=== PATIENT | male | born 1960 | race Hispanic/Latino ===

== ENCOUNTER → 2020-11-02 | Day surgery (SDC) | payer MEDICARE ==
[2020-10-28 14:15] LABS: BASOPHILS # (AUTO) 0.1 (0.0-0.1); BASOPHILS % 0.8 % (0.0-1.0); EOSINOPHILS # (AUTO) 0.2 (0.0-0.4); EOSINOPHILS % 3.1 % (0.0-6.0); HEMATOCRIT 45.7 % (38.2-49.6); HEMOGLOBIN 15.2 g/dL (14.0-18.0); LYMPHOCYTES # (AUTO) 1.7 (1.0-3.2); LYMPHOCYTES % 23.1 % (18.0-39.1); MEAN CORPUSCULAR HEMOGLOBIN 28.7 pg (28-32); MEAN CORPUSCULAR HGB CONC 33.3 g/dL (31-35); MEAN CORPUSCULAR VOLUME 86.2 fL (81-99); MONOCYTES # (AUTO) 0.5 (0.2-0.8); MONOCYTES % 7.3 % (4.4-11.3); NEUTROPHILS # (AUTO) 4.9 (2.1-6.9); NEUTROPHILS % 65.4 % (38.7-80.0); PLATELET COUNT 205 x10e3/uL (140-360); RED CELL DISTRIBUTION WIDTH 14.6 % (11.7-14.4)
[2020-10-28 14:32] LABS: ALANINE AMINOTRANSFERASE 9 IU/L (0-55); ALBUMIN 3.8 g/dL (3.5-5.0); ALBUMIN/GLOBULIN RATIO 1.1 (0.8-2.0); ALKALINE PHOSPHATASE 87 IU/L (40-150); ANION GAP 16.4 mmol/L (8-16); BLOOD UREA NITROGEN 18 mg/dL (7-26); BUN/CREATININE RATIO 16 (6-25); CALCIUM 8.8 mg/dL (8.4-10.2); CARBON DIOXIDE 26 mmol/L (22-29); CHLORIDE 104 mmol/L (98-107); CREATININE, SERUM 1.14 mg/dL (0.72-1.25); EST GLOMERULAR FILTRATION RATE > 60 ML/MIN (60-); GLUCOSE 180 mg/dL (74-118); POTASSIUM 3.4 mmol/L (3.5-5.1); SODIUM 143 mmol/L (136-145)
[~2020-11-02] VITALS: Ht 180.3 cm; Wt 154.2 kg
[~2020-11-02] MED LIST: ACETAMINOPHEN-1 EAC4 PO; ALPRAZOLAM 0.5 MG TAB ONE; AMBIEN10 MG PO; AMMONIUM LACTA225 GM TOP; ASPIR 8181 MG PO; CHERATUSSIN AC118 ML PO; CLONIDINE HCL0.2 MG PO; COMBIVENT RESPIM4 GM IH; CYCLOBENZAPRINE10 MG PO; DIPHENHYDRAMINE HCL 25 MG CAP ONE; DOXAZOSIN MESYLA4 MG PO; FENTANYL CITRATE/PF 100MCG/2 ML INJ ONE; FLUTICA; FUROSEMIDE40 MG PO; GABAPENTIN300 MG PO; HEPARIN SOD/SOD CHLORIDE 2,000 ML ONE; IOPAMIDOL 370 MG/ML 200 ML INFUS..BTL INJ ONE; KETOCONAZOLE15 GM; LIDOCAINE HCL 2% LOCAL 20 ML VIAL ONE; LISINOPRIL40 MG PO; METFORMIN HCL500 MG PO; MIDAZOLAM HCL 2 MG/2 ML VIAL ONE; NEXIUM40 MG PO; NORVASC5 MG PO; POTASSIUM CHLO20 MEQ PO; SAVAYSA PO; SODIUM CHLORIDE 0.9% 1000ML 1,000 ML ONE; SPIRIVA18 MCG INH; SYMBICORT 16010.2 GM IH; TOPROL XL50 MG PO; TRAZODONE HCL50 MG PO; VERAPAMIL HCL 2.5 MG/ML 2 ML VIAL ONE; XARELTO20 MG PO; flonase
[2020-11-02 12:05] VITALS: BP 154/85
[2020-11-02 14:55] VITALS: BP 145/96
[2020-11-02 15:10] VITALS: BP 140/87
[2020-11-02 15:25] VITALS: BP 145/86
[2020-11-02 15:40] VITALS: BP 145/94
[2020-11-02 15:55] VITALS: BP 157/90
== END | disposition home or self-care (01) ==
LOC: CATH LAB 11:45
PROVIDERS: ATTEND Internal Medicine Interventional Cardiology
DX: I25.118 Atherosclerotic heart disease of native coronary artery with other forms of angina pectoris (principal); R94.39 Abnormal result of other cardiovascular function study; I11.0 Hypertensive heart disease with heart failure; I50.9 Heart failure, unspecified; E11.9 Type 2 diabetes mellitus without complications; I83.90 Asymptomatic varicose veins of unspecified lower extremity; Z79.84 Long term (current) use of oral hypoglycemic drugs; Z01.812 Encounter for preprocedural laboratory examination; Z20.822 Contact with and (suspected) exposure to COVID-19; Z79.02 Long term (current) use of antithrombotics/antiplatelets; Z79.82 Long term (current) use of aspirin; Z68.42 Body mass index [BMI] 45.0-49.9, adult; Z86.718 Personal history of other venous thrombosis and embolism; Z85.51 Personal history of malignant neoplasm of bladder; Z92.21 Personal history of antineoplastic chemotherapy; Z82.49 Family history of ischemic heart disease and other diseases of the circulatory system
CPT/HCPCS: 36415 ×2; 76937; 80053; 82948; 85025; 93454; C1887; J2001; J2250; J3010; J7030; Q9967; U0002; 99152; 99153

== ENCOUNTER 2021-05-10 14:50 | Outpatient (RCR) | payer MEDICARE ==
[2021-05-06 11:56] LABS: BASOPHILS # (AUTO) 0.1 (0.0-0.1); BASOPHILS % 0.8 % (0.0-1.0); EOSINOPHILS # (AUTO) 0.2 (0.0-0.4); EOSINOPHILS % 1.6 % (0.0-6.0); HEMATOCRIT 48.9 % (38.2-49.6); HEMOGLOBIN 15.5 g/dL (14.0-18.0); LYMPHOCYTES # (AUTO) 2.3 (1.0-3.2); LYMPHOCYTES % 24.9 % (18.0-39.1); MEAN CORPUSCULAR HEMOGLOBIN 27.9 pg (28-32); MEAN CORPUSCULAR HGB CONC 31.7 g/dL (31-35); MEAN CORPUSCULAR VOLUME 88.1 fL (81-99); MONOCYTES # (AUTO) 0.6 (0.2-0.8); MONOCYTES % 6.7 % (4.4-11.3); NEUTROPHILS % 65.5 % (38.7-80.0); PLATELET COUNT 262 x10e3/uL (140-360); RED BLOOD COUNT 5.55 x10e6/uL (4.3-5.7); RED CELL DISTRIBUTION WIDTH 13.7 % (11.7-14.4)
[2021-05-06 12:09] LABS: ALBUMIN/GLOBULIN RATIO 0.8 (0.8-2.0); ANION GAP 14.8 mmol/L (8-16); CALCIUM 8.9 mg/dL (8.4-10.2); CREATININE, SERUM 1.23 mg/dL (0.72-1.25); POTASSIUM 3.8 mmol/L (3.5-5.1)
[~2021-05-10 14:50] MED LIST changes: -ALPRAZOLAM 0.5 MG TAB ONE; -DIPHENHYDRAMINE HCL 25 MG CAP ONE; -FENTANYL CITRATE/PF 100MCG/2 ML INJ ONE; -HEPARIN SOD/SOD CHLORIDE 2,000 ML ONE; -IOPAMIDOL 370 MG/ML 200 ML INFUS..BTL INJ ONE; -LIDOCAINE HCL 2% LOCAL 20 ML VIAL ONE; -MIDAZOLAM HCL 2 MG/2 ML VIAL ONE; -SODIUM CHLORIDE 0.9% 1000ML 1,000 ML ONE; -VERAPAMIL HCL 2.5 MG/ML 2 ML VIAL ONE
== END 2021-05-12 ==
LOC: WCC 14:50
PROVIDERS: ATTEND Internal Medicine Infectious Disease
DX: I87.332 Chronic venous hypertension (idiopathic) with ulcer and inflammation of left lower extremity (principal); E11.8 Type 2 diabetes mellitus with unspecified complications; L97.821 Non-pressure chronic ulcer of other part of left lower leg limited to breakdown of skin; L03.818 Cellulitis of other sites; I82.402 Acute embolism and thrombosis of unspecified deep veins of left lower extremity; I87.2 Venous insufficiency (chronic) (peripheral); R60.0 Localized edema; I10 Essential (primary) hypertension; I25.10 Atherosclerotic heart disease of native coronary artery without angina pectoris; J44.9 Chronic obstructive pulmonary disease, unspecified; Z85.51 Personal history of malignant neoplasm of bladder; Z85.9 Personal history of malignant neoplasm, unspecified; Z72.0 Tobacco use
CPT/HCPCS: 36415; 80053; 82948; 83036; 84134; 85025; 87071; 87075; 87186; 87205

== ENCOUNTER 2021-06-09 13:47 | Outpatient (RCR) | payer MEDICARE, OTHER ==
[~2021-06-09 13:47] MED LIST changes: +LIDOCAINE VISC 2% SOLN 15 ML UDC ONE; +LIDOCAINE/PRILOCAINE 2.5-2.5% KIT ONE; +MINERAL OIL/PETROLAT/GLYCERI 6OZ BTL ONE
== END 2021-06-12 ==
LOC: WCC 13:47
PROVIDERS: ATTEND Internal Medicine Infectious Disease
DX: I87.332 Chronic venous hypertension (idiopathic) with ulcer and inflammation of left lower extremity (principal); E11.8 Type 2 diabetes mellitus with unspecified complications; L97.821 Non-pressure chronic ulcer of other part of left lower leg limited to breakdown of skin; L03.818 Cellulitis of other sites; I82.402 Acute embolism and thrombosis of unspecified deep veins of left lower extremity; I87.2 Venous insufficiency (chronic) (peripheral); R60.0 Localized edema; I10 Essential (primary) hypertension; I25.10 Atherosclerotic heart disease of native coronary artery without angina pectoris; B96.5 Pseudomonas (aeruginosa) (mallei) (pseudomallei) as the cause of diseases classified elsewhere; B96.89 Other specified bacterial agents as the cause of diseases classified elsewhere; J44.9 Chronic obstructive pulmonary disease, unspecified; Z72.0 Tobacco use; Z85.51 Personal history of malignant neoplasm of bladder; Z85.9 Personal history of malignant neoplasm, unspecified
CPT/HCPCS: 36415; 82948

== ENCOUNTER 2021-07-04 12:40 | Inpatient (IN) | payer MEDICARE, OTHER ==
[~2021-07-04] VITALS: Ht 180.3 cm; Wt 156.5 kg
[~2021-07-04 12:40] MED LIST changes: -LIDOCAINE VISC 2% SOLN 15 ML UDC ONE; -LIDOCAINE/PRILOCAINE 2.5-2.5% KIT ONE; -MINERAL OIL/PETROLAT/GLYCERI 6OZ BTL ONE
[2021-07-04 15:49] LABS: BASOPHILS # (AUTO) 0.1 (0.0-0.1); BASOPHILS % 0.9 % (0.0-1.0); EOSINOPHILS # (AUTO) 0.3 (0.0-0.4); EOSINOPHILS % 5.1 % (0.0-6.0); HEMATOCRIT 44.9 % (38.2-49.6); LYMPHOCYTES # (AUTO) 1.7 (1.0-3.2); LYMPHOCYTES % 29.5 % (18.0-39.1); MEAN CORPUSCULAR HEMOGLOBIN 28.7 pg (28-32); MEAN CORPUSCULAR HGB CONC 31.2 g/dL (31-35); MONOCYTES # (AUTO) 0.6 (0.2-0.8); MONOCYTES % 10.6 % (4.4-11.3); NEUTROPHILS # (AUTO) 3.1 (2.1-6.9); NEUTROPHILS % 53.4 % (38.7-80.0); PLATELET COUNT 206 x10e3/uL (140-360); RED BLOOD COUNT 4.88 x10e6/uL (4.3-5.7); RED CELL DISTRIBUTION WIDTH 15.7 % (11.7-14.4)
[2021-07-04 16:06] LABS: INR 0.92; PROTHROMBIN TIME 13.1 seconds (11.9-14.5)
[2021-07-04 16:07] LABS: PARTIAL THROMBOPLASTIN TIME 32.6 seconds (23.8-35.5)
[2021-07-04 16:16] LABS: ALBUMIN 3.4 g/dL (3.5-5.0); ALBUMIN/GLOBULIN RATIO 1.2 (0.8-2.0); ANION GAP 13.7 mmol/L (8-16); CALCIUM 8.7 mg/dL (8.4-10.2); CREATININE, SERUM 1.09 mg/dL (0.72-1.25); POTASSIUM 3.7 mmol/L (3.5-5.1)
[2021-07-04 16:22] LABS: CREATINE KINASE MB 31.8 ng/mL (0-5.0)
[2021-07-04] MEDS ORDERED: SODIUM CHLORIDE 0.9% 100 ML ONE (16:41)
[2021-07-04] MEDS ORDERED: IOPAMIDOL 370 MG/ML 200 ML INFUS..BTL INJ ONE (16:41)
[2021-07-04] MEDS ORDERED: SODIUM CHLORIDE FLUSH 10 ML SYR INJ PRN (17:00)
[2021-07-04 17:17] LABS: CLARITY,URINE SL CLOUDY (CLEAR); COLOR,URINE AMBER (YELLOW); KETONES,URINE NEGATIVE (NEGATIVE); LEUKOCYTE ESTERASE ,URINE NEGATIVE (NEGATIVE); NITRITE,URINE NEGATIVE (NEGATIVE); PROTEIN,URINE DIPSTICK NEGATIVE (NEGATIVE)
[2021-07-04 17:18] LABS: AMPHETAMINES SCREEN,URINE NEGATIVE (NEGATIVE); BENZODIAZEPINES SCREEN,URINE NEGATIVE (NEGATIVE); PHENCYCLIDINE SCREEN,URINE NEGATIVE (NEGATIVE); URINE UROBILINOGEN 0.2 mg/dL (0.2 - 1)
[2021-07-04 17:28] LABS: EPITHELIAL CELLS,URINE FEW /LPF; WBC,URINE (MAN) 0-5 /HPF (0-5)
[2021-07-04] MEDS ORDERED: CLONIDINE HCL 0.1 MG TAB PO ONE (17:30)
[2021-07-04 18:45] VITALS: BP 184/123
[2021-07-04 19:00] VITALS: BP 171/98
[2021-07-04 20:03] VITALS: BP 171/98
[2021-07-04] MEDS ORDERED: TRAZODONE HCL150 MG PO (20:04)
[2021-07-04] MEDS ORDERED: KLOR-CON M2020 MEQ PO (20:04)
[2021-07-04] MEDS ORDERED: FAMOTIDINE20 MG PO (20:27)
[2021-07-04] MEDS ORDERED: HYDROXYZINE HCL25 MG PO (20:27)
[2021-07-04] MEDS ORDERED: LASIX20 MG PO (20:28)
[2021-07-04] MEDS ORDERED: TRULICITY1.5 MG/0.5 SQ (20:33)
[2021-07-04] MEDS ORDERED: FLOMAX0.4 MG PO (20:33)
[2021-07-04] MEDS ORDERED: MORPHINE SULFAT60 MG PO (20:33)
[2021-07-04] MEDS ORDERED: GABAPENTIN600 MG PO (20:33)
[2021-07-04] MEDS ORDERED: ATORVASTATIN CA40 MG PO (20:33)
[2021-07-04] MEDS ORDERED: AMLODIPINE BESYL5 MG PO (20:33)
[2021-07-04] MEDS ORDERED: OXYCODONE-ACET1 EAC3 PO (20:33)
[2021-07-04] MEDS ORDERED: DULOXETINE HCL30 MG PO (20:33)
[2021-07-04] MEDS ORDERED: PROVENTIL HFA6.7 GM INH (20:36)
[2021-07-04] MEDS ORDERED: ALBUTEROL SULFATE HFA 8GM INHALATION AEROSOL INH PRN (21:00)
[2021-07-04] MEDS ORDERED: NON-FORMULARY MEDICATION (Oxycodone Hcl/Acetaminophen (Oxycodone-Acetaminophen 10-325) 1 T PO PRN (21:00)
[2021-07-04] MEDS: INSULIN LISPRO 100 UNIT/1 ML 3ML VIAL SQ SCH (21:00)
[2021-07-04] MEDS ORDERED: HYDROXYZINE HCL 25 MG TAB PO PRN (21:00)
[2021-07-04] MEDS ORDERED: TRAZODONE HCL 50 MG TAB PO PRN (21:00)
[2021-07-04] MEDS ORDERED: DEXTROSE 50% SYRINGE 50 ML IV PRN (21:00)
[2021-07-04] MEDS ORDERED: OXYCODONE/ACETAMINOPHEN 5-325 1 EACH TABLET PO PRN (21:30)
[2021-07-04] MEDS: TAMSULOSIN HCL 0.4 MG CAP PO SCH (22:00)
[2021-07-04] MEDS: CYCLOBENZAPRINE HCL 10 MG TAB PO SCH (22:00)
[2021-07-04] MEDS: CLONIDINE HCL 0.2 MG TAB PO SCH (22:00)
[2021-07-04] MEDS: ATORVASTATIN 40 MG TAB PO SCH (22:00)
[2021-07-04] MEDS: MORPHINE SULFATE 30 MG TAB ER PO SCH (22:00)
[2021-07-04] MEDS: GABAPENTIN 300 MG CAP PO SCH (22:00)
[2021-07-04 23:50] LABS: CREATINE KINASE MB 19.4 ng/mL (0-5.0)
[2021-07-05] VITALS (7 sets, daily range): BP systolic 92–159; BP diastolic 64–102
[2021-07-05] MEDS: OXYCODONE HCL IR 5 MG TAB PO PRN ×2 (03:39→18:38)
[2021-07-05 06:03] LABS: CREATINE KINASE MB 4.7 ng/mL (0-5.0)
[2021-07-05] MEDS: CLONIDINE HCL 0.2 MG TAB PO SCH ×3 (06:07→22:31)
[2021-07-05] MEDS: INSULIN LISPRO 100 UNIT/1 ML 3ML VIAL SQ SCH ×4 (07:30→21:00)
[2021-07-05] MEDS: DOXAZOSIN MESYLATE 2 MG TAB PO SCH (09:05)
[2021-07-05] MEDS: DULOXETINE HCL 30 MG DELAYED RELEASE PO SCH (09:05)
[2021-07-05] MEDS: CYCLOBENZAPRINE HCL 10 MG TAB PO SCH ×3 (09:06→22:31)
[2021-07-05] MEDS: POTASSIUM CHLORIDE 20 MEQ TAB CR PO SCH (09:06)
[2021-07-05] MEDS: GABAPENTIN 300 MG CAP PO SCH ×3 (09:07→22:31)
[2021-07-05] MEDS: AMLODIPINE BESYLATE 5 MG TAB PO SCH (09:07)
[2021-07-05] MEDS: FUROSEMIDE 20 MG TAB PO SCH ×2 (09:07→17:00)
[2021-07-05] MEDS: LISINOPRIL 20 MG TAB PO SCH (09:08)
[2021-07-05] MEDS: FAMOTIDINE 20 MG TAB PO SCH ×2 (09:08→17:00)
[2021-07-05] MEDS: ASPIRIN 81 MG CHEW TAB PO SCH (09:09)
[2021-07-05] MEDS: METOPROLOL SUCCINATE 50 MG TAB XL PO SCH (09:09)
[2021-07-05] MEDS: MORPHINE SULFATE 30 MG TAB ER PO SCH ×2 (09:11→22:31)
[2021-07-05] MEDS: BUDESONIDE/FORMOTEROL 160/4.5MCG INHALER INH SCH ×3 (13:05→18:50)
[2021-07-05] MEDS: LEVOFLOXACIN 500 MG TAB PO SCH (15:20)
[2021-07-05] MEDS: ATORVASTATIN 40 MG TAB PO SCH (22:31)
[2021-07-05] MEDS: TAMSULOSIN HCL 0.4 MG CAP PO SCH (22:31)
[2021-07-06] VITALS: BP 136/92
[2021-07-06 04:00] VITALS: BP 152/88
[2021-07-06 05:04] LABS: BASOPHILS # (AUTO) 0.1 (0.0-0.1); BASOPHILS % 0.9 % (0.0-1.0); EOSINOPHILS # (AUTO) 0.2 (0.0-0.4); EOSINOPHILS % 3.8 % (0.0-6.0); HEMATOCRIT 43.6 % (38.2-49.6); HEMOGLOBIN 13.6 g/dL (14.0-18.0); LYMPHOCYTES # (AUTO) 1.8 (1.0-3.2); LYMPHOCYTES % 31.4 % (18.0-39.1); MEAN CORPUSCULAR HEMOGLOBIN 28.7 pg (28-32); MEAN CORPUSCULAR HGB CONC 31.2 g/dL (31-35); MONOCYTES # (AUTO) 0.6 (0.2-0.8); MONOCYTES % 9.8 % (4.4-11.3); NEUTROPHILS # (AUTO) 3.2 (2.1-6.9); NEUTROPHILS % 53.9 % (38.7-80.0); PLATELET COUNT 193 x10e3/uL (140-360); RED BLOOD COUNT 4.74 x10e6/uL (4.3-5.7); RED CELL DISTRIBUTION WIDTH 15.5 % (11.7-14.4)
[2021-07-06 05:33] LABS: ALBUMIN 2.9 g/dL (3.5-5.0); ALBUMIN/GLOBULIN RATIO 1.1 (0.8-2.0); ANION GAP 11.7 mmol/L (8-16); CALCIUM 8.2 mg/dL (8.4-10.2); CREATININE, SERUM 0.96 mg/dL (0.72-1.25); POTASSIUM 3.7 mmol/L (3.5-5.1)
[2021-07-06] MEDS: CLONIDINE HCL 0.2 MG TAB PO SCH ×2 (06:30→16:03)
[2021-07-06 07:30] VITALS: BP 143/96
[2021-07-06] MEDS: INSULIN LISPRO 100 UNIT/1 ML 3ML VIAL SQ SCH ×3 (07:30→16:30)
[2021-07-06 08:03] VITALS: BP 143/96
[2021-07-06] MEDS ORDERED: MUPIROCIN 2% OINT 22 GM TUBE TOP SCH (09:00)
[2021-07-06] MEDS: BUDESONIDE/FORMOTEROL 160/4.5MCG INHALER INH SCH (09:04)
[2021-07-06] MEDS: ASPIRIN 81 MG CHEW TAB PO SCH (09:15)
[2021-07-06] MEDS: FUROSEMIDE 20 MG TAB PO SCH (09:16)
[2021-07-06] MEDS: GABAPENTIN 300 MG CAP PO SCH ×2 (09:16→16:03)
[2021-07-06] MEDS: DULOXETINE HCL 30 MG DELAYED RELEASE PO SCH (09:16)
[2021-07-06] MEDS: MORPHINE SULFATE 30 MG TAB ER PO SCH (09:16)
[2021-07-06] MEDS: AMLODIPINE BESYLATE 5 MG TAB PO SCH (09:16)
[2021-07-06] MEDS: DOXAZOSIN MESYLATE 2 MG TAB PO SCH (09:16)
[2021-07-06] MEDS: POTASSIUM CHLORIDE 20 MEQ TAB CR PO SCH (09:16)
[2021-07-06] MEDS: CYCLOBENZAPRINE HCL 10 MG TAB PO SCH ×2 (09:16→16:03)
[2021-07-06] MEDS: FAMOTIDINE 20 MG TAB PO SCH (09:16)
[2021-07-06] MEDS: LISINOPRIL 20 MG TAB PO SCH (09:17)
[2021-07-06] MEDS: METOPROLOL SUCCINATE 50 MG TAB XL PO SCH (09:17)
[2021-07-06 11:37] VITALS: BP 123/73
[2021-07-06] MEDS ORDERED: ALBUTEROL/IPRATROPIUM 3 ML NEB NEB PRN (12:30)
[2021-07-06] MEDS: LEVOFLOXACIN 500 MG TAB PO SCH (12:39)
[2021-07-06 15:22] VITALS: BP 155/80
== END 2021-07-06 17:31 | disposition home or self-care (01) | DRG 299 ==
LOC: ER 12:49 → ERHOLD 17:01 → MED/SURG2 18:13
DX: I83.218 Varicose veins of right lower extremity with both ulcer of other part of lower extremity and inflammation (principal); J96.01 Acute respiratory failure with hypoxia; Z68.42 Body mass index [BMI] 45.0-49.9, adult; I50.32 Chronic diastolic (congestive) heart failure; E66.2 Morbid (severe) obesity with alveolar hypoventilation; I82.513 Chronic embolism and thrombosis of femoral vein, bilateral; I82.533 Chronic embolism and thrombosis of popliteal vein, bilateral; J44.1 Chronic obstructive pulmonary disease with (acute) exacerbation; L97.811 Non-pressure chronic ulcer of other part of right lower leg limited to breakdown of skin; L97.821 Non-pressure chronic ulcer of other part of left lower leg limited to breakdown of skin; E11.9 Type 2 diabetes mellitus without complications; I11.0 Hypertensive heart disease with heart failure; Z85.51 Personal history of malignant neoplasm of bladder; J61 Pneumoconiosis due to asbestos and other mineral fibers; J39.8 Other specified diseases of upper respiratory tract; Z20.822 Contact with and (suspected) exposure to COVID-19; Z79.82 Long term (current) use of aspirin; I83.228 Varicose veins of left lower extremity with both ulcer of other part of lower extremity and inflammation
CPT/HCPCS: 29581; 36415; 36600; 70450; 71260; 80053; 80307; 81001; 82550; 82553; 82948; 83880; 84484; 85025; 85379; 85610; 85730; 93005; 93306; 93970; 93971; 94799; 99251; 99284; J7050; Q9967; U0002

== ENCOUNTER 2021-07-11 12:40 | Outpatient (RCR) | payer MEDICARE, OTHER ==
[~2021-07-11 12:40] MED LIST changes: +AMLODIPINE BESYL5 MG PO; +ATORVASTATIN CA40 MG PO; +DULOXETINE HCL30 MG PO; +FAMOTIDINE20 MG PO; +FLOMAX0.4 MG PO; +GABAPENTIN600 MG PO; +HYDROXYZINE HCL25 MG PO; +KLOR-CON M2020 MEQ PO; +LASIX20 MG PO; +LIDOCAINE VISC 2% SOLN 15 ML UDC ONE; +MINERAL OIL/PETROLAT/GLYCERI 6OZ BTL ONE; +MORPHINE SULFAT60 MG PO; +OXYCODONE-ACET1 EAC3 PO; +PROVENTIL HFA6.7 GM INH; +TRAZODONE HCL150 MG PO; +TRULICITY1.5 MG/0.5 SQ; +TRYPSIN/BALSAM PERU/CASTOR OIL ONE
== END 2021-07-12 ==
LOC: WCC 12:40
PROVIDERS: ATTEND Internal Medicine Infectious Disease
DX: E11.8 Type 2 diabetes mellitus with unspecified complications (principal); I87.332 Chronic venous hypertension (idiopathic) with ulcer and inflammation of left lower extremity; L97.821 Non-pressure chronic ulcer of other part of left lower leg limited to breakdown of skin; L03.818 Cellulitis of other sites; I82.402 Acute embolism and thrombosis of unspecified deep veins of left lower extremity; I87.2 Venous insufficiency (chronic) (peripheral); R60.0 Localized edema; I10 Essential (primary) hypertension; I25.10 Atherosclerotic heart disease of native coronary artery without angina pectoris; J44.9 Chronic obstructive pulmonary disease, unspecified; B96.5 Pseudomonas (aeruginosa) (mallei) (pseudomallei) as the cause of diseases classified elsewhere; B96.89 Other specified bacterial agents as the cause of diseases classified elsewhere; R26.89 Other abnormalities of gait and mobility; Z72.0 Tobacco use; Z85.51 Personal history of malignant neoplasm of bladder; Z85.9 Personal history of malignant neoplasm, unspecified
CPT/HCPCS: 36415; 82948

== ENCOUNTER 2021-08-11 12:44 | Outpatient (RCR) | payer MEDICARE, OTHER ==
[~2021-08-11 12:44] MED LIST changes: +COLLAGENASE OINTMENT 30 GM TUBE ONE; +MUPIROCIN 2% OINT 22 GM TUBE ONE
[2021-08-11] MEDS ORDERED: LIDOCAINE VISC 2% SOLN 15 ML UDC ONE (13:29)
[2021-08-11] MEDS ORDERED: MINERAL OIL/PETROLAT/GLYCERI 6OZ BTL ONE (13:29)
[2021-08-11] MEDS ORDERED: TRYPSIN/BALSAM PERU/CASTOR OIL ONE (13:29)
== END 2021-08-12 ==
LOC: WCC 12:44
PROVIDERS: ATTEND Internal Medicine Infectious Disease
DX: E11.8 Type 2 diabetes mellitus with unspecified complications (principal); S81.801A Unspecified open wound, right lower leg, initial encounter; S91.309A Unspecified open wound, unspecified foot, initial encounter; L97.821 Non-pressure chronic ulcer of other part of left lower leg limited to breakdown of skin; I87.332 Chronic venous hypertension (idiopathic) with ulcer and inflammation of left lower extremity; L03.818 Cellulitis of other sites; I82.402 Acute embolism and thrombosis of unspecified deep veins of left lower extremity; I87.2 Venous insufficiency (chronic) (peripheral); R60.0 Localized edema; I10 Essential (primary) hypertension; I25.10 Atherosclerotic heart disease of native coronary artery without angina pectoris; J44.9 Chronic obstructive pulmonary disease, unspecified; W08.XXXA Fall from other furniture, initial encounter; Z85.51 Personal history of malignant neoplasm of bladder; Z85.9 Personal history of malignant neoplasm, unspecified; R26.89 Other abnormalities of gait and mobility; Z72.0 Tobacco use
CPT/HCPCS: 36415; 82948

== ENCOUNTER → 2021-09-12 | Outpatient (RCR) | payer MEDICARE, OTHER ==
[~2021-09-12] MED LIST changes: +MINERAL OIL/PETROLAT/GLYCERI 2OZ CRM ONE
== END ==
LOC: WCC 08-15 16:11
PROVIDERS: ATTEND Internal Medicine Infectious Disease
DX: I87.332 Chronic venous hypertension (idiopathic) with ulcer and inflammation of left lower extremity (principal); E11.8 Type 2 diabetes mellitus with unspecified complications; L97.821 Non-pressure chronic ulcer of other part of left lower leg limited to breakdown of skin; I82.402 Acute embolism and thrombosis of unspecified deep veins of left lower extremity; S81.801A Unspecified open wound, right lower leg, initial encounter; S91.309A Unspecified open wound, unspecified foot, initial encounter; L03.818 Cellulitis of other sites; I87.2 Venous insufficiency (chronic) (peripheral); R60.0 Localized edema; I10 Essential (primary) hypertension; J44.9 Chronic obstructive pulmonary disease, unspecified; I25.10 Atherosclerotic heart disease of native coronary artery without angina pectoris; R26.89 Other abnormalities of gait and mobility; W08.XXXA Fall from other furniture, initial encounter; Z72.0 Tobacco use; Z85.51 Personal history of malignant neoplasm of bladder; Z85.9 Personal history of malignant neoplasm, unspecified

== ENCOUNTER → 2021-10-10 | Outpatient (RCR) | payer MEDICARE, OTHER ==
[~2021-10-10] MED LIST changes: -MINERAL OIL/PETROLAT/GLYCERI 2OZ CRM ONE
== END ==
LOC: WCC 09-15 11:33
PROVIDERS: ATTEND Internal Medicine Infectious Disease
DX: E11.8 Type 2 diabetes mellitus with unspecified complications (principal); S81.801A Unspecified open wound, right lower leg, initial encounter; S91.309A Unspecified open wound, unspecified foot, initial encounter; I87.332 Chronic venous hypertension (idiopathic) with ulcer and inflammation of left lower extremity; L97.821 Non-pressure chronic ulcer of other part of left lower leg limited to breakdown of skin; L03.818 Cellulitis of other sites; I82.402 Acute embolism and thrombosis of unspecified deep veins of left lower extremity; I87.2 Venous insufficiency (chronic) (peripheral); R60.0 Localized edema; I10 Essential (primary) hypertension; I25.10 Atherosclerotic heart disease of native coronary artery without angina pectoris; J44.9 Chronic obstructive pulmonary disease, unspecified; W08.XXXA Fall from other furniture, initial encounter; Z85.51 Personal history of malignant neoplasm of bladder; Z85.9 Personal history of malignant neoplasm, unspecified; Z72.0 Tobacco use; R26.89 Other abnormalities of gait and mobility

== ENCOUNTER 2021-10-24 15:26 | Observation (INO) | payer MEDICARE ==
[~2021-10-24] VITALS: Ht 180.3 cm; Wt 156.5 kg
[~2021-10-24 15:26] MED LIST changes: -COLLAGENASE OINTMENT 30 GM TUBE ONE; -LIDOCAINE VISC 2% SOLN 15 ML UDC ONE; -MINERAL OIL/PETROLAT/GLYCERI 6OZ BTL ONE; -MUPIROCIN 2% OINT 22 GM TUBE ONE; -TRYPSIN/BALSAM PERU/CASTOR OIL ONE
[2021-10-24 17:16] LABS: BASOPHILS # (AUTO) 0.1 (0.0-0.1); BASOPHILS % 1.1 % (0.0-1.0); EOSINOPHILS # (AUTO) 0.3 (0.0-0.4); EOSINOPHILS % 4.3 % (0.0-6.0); HEMATOCRIT 46.7 % (38.2-49.6); HEMOGLOBIN 15.1 g/dL (14.0-18.0); LYMPHOCYTES # (AUTO) 1.9 (1.0-3.2); MEAN CORPUSCULAR HEMOGLOBIN 29.3 pg (28-32); MEAN CORPUSCULAR HGB CONC 32.3 g/dL (31-35); MEAN CORPUSCULAR VOLUME 90.7 fL (81-99); MONOCYTES # (AUTO) 0.6 (0.2-0.8); MONOCYTES % 7.9 % (4.4-11.3); NEUTROPHILS # (AUTO) 4.4 (2.1-6.9); PLATELET COUNT 261 x10e3/uL (140-360); RED BLOOD COUNT 5.15 x10e6/uL (4.3-5.7); RED CELL DISTRIBUTION WIDTH 15.6 % (11.7-14.4)
[2021-10-24 17:37] LABS: ALBUMIN 3.4 g/dL (3.5-5.0); ALBUMIN/GLOBULIN RATIO 1.1 (0.8-2.0); ANION GAP 11.8 mmol/L (8-16); CREATININE, SERUM 1.03 mg/dL (0.72-1.25); POTASSIUM 3.8 mmol/L (3.5-5.1)
[2021-10-24 17:44] LABS: CREATINE KINASE MB 7.6 ng/mL (0-5.0)
[2021-10-24] MEDS ORDERED: NALOXONE HCL 2MG/2 ML SYRINGE IV ONE ×2 (18:45→19:30)
[2021-10-24] MEDS ORDERED: NALOXONE HCL INJ 0.4 MG/ML AMP ONE (18:58)
[2021-10-24] MEDS ORDERED: ONDANSETRON HCL INJ 2MG/ML 2ML 2 MG/ML VIAL IV PRN (19:45)
[2021-10-24 22:37] LABS: AMPHETAMINES SCREEN,URINE NEGATIVE (NEGATIVE); BENZODIAZEPINES SCREEN,URINE NEGATIVE (NEGATIVE); PHENCYCLIDINE SCREEN,URINE NEGATIVE (NEGATIVE)
[2021-10-24 23:00] VITALS: BP 152/95
[2021-10-24] MEDS ORDERED: DOCUSATE SODIUM 100 MG CAP PO PRN (23:15)
[2021-10-24] MEDS ORDERED: ACETAMINOPHEN 325 MG TAB PO PRN (23:15)
[2021-10-24 23:51] VITALS: BP 127/93
[2021-10-25 00:02] LABS: CHOL/HDL RATIO 3.3 (3.9-4.7)
[2021-10-25 01:40] VITALS: BP 152/95
[2021-10-25 05:37] VITALS: BP 157/104
[2021-10-25] MEDS ORDERED: METFORMIN HCL500 MG PO (06:10)
[2021-10-25] MEDS ORDERED: HYDROCODON-ACE1 EAC9 PO (06:10)
[2021-10-25] MEDS ORDERED: BYETTA10 MCG/0.0 SQ (06:10)
[2021-10-25] MEDS ORDERED: COMBIVENT RESPIM4 GM IH (06:10)
[2021-10-25] MEDS ORDERED: VARENICLINE PO (06:10)
[2021-10-25] MEDS ORDERED: XARELTO10 MG PO (06:10)
[2021-10-25] MEDS ORDERED: HYDRALAZINE HCL50 MG PO (06:10)
[2021-10-25] MEDS ORDERED: FLUTICASONE PRO16 GM (06:10)
[2021-10-25] MEDS ORDERED: OXYBUTYNIN CHLOR5 MG PO (06:10)
[2021-10-25] MEDS ORDERED: BUSPIRONE HCL5 MG PO (06:10)
[2021-10-25 06:14] LABS: BASOPHILS # (AUTO) 0.1 (0.0-0.1); BASOPHILS % 1.2 % (0.0-1.0); EOSINOPHILS # (AUTO) 0.3 (0.0-0.4); EOSINOPHILS % 4.4 % (0.0-6.0); HEMATOCRIT 47.5 % (38.2-49.6); HEMOGLOBIN 15.7 g/dL (14.0-18.0); LYMPHOCYTES # (AUTO) 1.8 (1.0-3.2); LYMPHOCYTES % 23.4 % (18.0-39.1); MEAN CORPUSCULAR HEMOGLOBIN 29.5 pg (28-32); MEAN CORPUSCULAR HGB CONC 33.1 g/dL (31-35); MEAN CORPUSCULAR VOLUME 89.3 fL (81-99); MONOCYTES # (AUTO) 0.6 (0.2-0.8); MONOCYTES % 7.8 % (4.4-11.3); NEUTROPHILS # (AUTO) 4.8 (2.1-6.9); NEUTROPHILS % 62.8 % (38.7-80.0); PLATELET COUNT 265 x10e3/uL (140-360); RED BLOOD COUNT 5.32 x10e6/uL (4.3-5.7); RED CELL DISTRIBUTION WIDTH 15.6 % (11.7-14.4)
[2021-10-25 06:21] VITALS: BP 149/88
[2021-10-25 06:32] LABS: ANION GAP 10.9 mmol/L (8-16); CALCIUM 9.2 mg/dL (8.4-10.2); CREATININE, SERUM 0.9 mg/dL (0.72-1.25); POTASSIUM 3.9 mmol/L (3.5-5.1)
[2021-10-25] MEDS ORDERED: FAMOTIDINE 20 MG TAB PO SCH (07:30)
[2021-10-25 08:00] VITALS: BP 191/109
[2021-10-25 08:20] VITALS: BP 191/109
[2021-10-25] MEDS ORDERED: METOPROLOL SUCCINATE 50 MG TAB XL PO SCH (09:30)
[2021-10-25] MEDS ORDERED: AMLODIPINE BESYLATE 5 MG TAB PO SCH (09:30)
[2021-10-25] MEDS ORDERED: ONDANSETRON HCL 4 MG ORAL DISINTEGRATING TAB PO PRN (09:45)
[2021-10-25 12:00] VITALS: BP 167/105
== END 2021-10-25 14:48 | disposition home or self-care (01) ==
LOC: ER 15:28 → INTOOBSV 19:45 → ERHOLD 19:45 → MED/SURG2 22:02
PROVIDERS: ADMIT Internal Medicine; ATTEND Internal Medicine
DX: T40.2X1A Poisoning by other opioids, accidental (unintentional), initial encounter (principal); F11.20 Opioid dependence, uncomplicated; G47.33 Obstructive sleep apnea (adult) (pediatric); J96.10 Chronic respiratory failure, unspecified whether with hypoxia or hypercapnia; E66.01 Morbid (severe) obesity due to excess calories; Z68.41 Body mass index [BMI] 40.0-44.9, adult; E11.622 Type 2 diabetes mellitus with other skin ulcer; L97.909 Non-pressure chronic ulcer of unspecified part of unspecified lower leg with unspecified severity; Z79.899 Other long term (current) drug therapy; I11.0 Hypertensive heart disease with heart failure; I50.9 Heart failure, unspecified; J44.9 Chronic obstructive pulmonary disease, unspecified; Z20.822 Contact with and (suspected) exposure to COVID-19
CPT/HCPCS: 36415 ×2; 70450; 71045; 80048; 80053; 80061; 80307; 82140; 82550; 82553; 82948; 83036; 83880; 84484; 85025 ×2; 93005; 94799 ×2; 97161; 99251; 99284; G0378 ×2; J2310 ×2; U0002

== ENCOUNTER → 2022-01-10 | Outpatient (RCR) | payer MEDICARE ==
[~2022-01-10] MED LIST changes: +BUSPIRONE HCL5 MG PO; +BYETTA10 MCG/0.0 SQ; +COLLAGENASE OINTMENT 30 GM TUBE ONE; +FLUTICASONE PRO16 GM; +HYDRALAZINE HCL50 MG PO; +HYDROCODON-ACE1 EAC9 PO; +LIDOCAINE VISC 2% SOLN 15 ML UDC ONE; +MINERAL OIL/PETROLAT/GLYCERI 6OZ BTL ONE; +MUPIROCIN 2% OINT 22 GM TUBE ONE; +OXYBUTYNIN CHLOR5 MG PO; +VARENICLINE PO; +XARELTO10 MG PO
== END ==
LOC: WCC 12-12 14:25
PROVIDERS: ATTEND Internal Medicine Infectious Disease
DX: E11.8 Type 2 diabetes mellitus with unspecified complications (principal); I87.332 Chronic venous hypertension (idiopathic) with ulcer and inflammation of left lower extremity; L97.821 Non-pressure chronic ulcer of other part of left lower leg limited to breakdown of skin; S91.309A Unspecified open wound, unspecified foot, initial encounter; I82.402 Acute embolism and thrombosis of unspecified deep veins of left lower extremity; I87.2 Venous insufficiency (chronic) (peripheral); L03.818 Cellulitis of other sites; R60.0 Localized edema; I10 Essential (primary) hypertension; I25.10 Atherosclerotic heart disease of native coronary artery without angina pectoris; J44.9 Chronic obstructive pulmonary disease, unspecified; Z85.51 Personal history of malignant neoplasm of bladder; Z85.9 Personal history of malignant neoplasm, unspecified; Z72.0 Tobacco use; R26.89 Other abnormalities of gait and mobility; W08.XXXA Fall from other furniture, initial encounter

== ENCOUNTER 2022-01-19 14:59 | Outpatient (RCR) | payer MEDICARE | END 2022-02-09 | LOC: WCC 14:59 | PROVIDERS: ATTEND Internal Medicine Infectious Disease | DX: E11.8 Type 2 diabetes mellitus with unspecified complications (principal); I87.332 Chronic venous hypertension (idiopathic) with ulcer and inflammation of left lower extremity; L97.821 Non-pressure chronic ulcer of other part of left lower leg limited to breakdown of skin; L03.818 Cellulitis of other sites; I87.2 Venous insufficiency (chronic) (peripheral); I82.402 Acute embolism and thrombosis of unspecified deep veins of left lower extremity; R60.0 Localized edema; I10 Essential (primary) hypertension; J44.9 Chronic obstructive pulmonary disease, unspecified; I25.10 Atherosclerotic heart disease of native coronary artery without angina pectoris; R26.89 Other abnormalities of gait and mobility; W08.XXXA Fall from other furniture, initial encounter; Z72.0 Tobacco use; Z85.9 Personal history of malignant neoplasm, unspecified; Z85.51 Personal history of malignant neoplasm of bladder ==